=== PATIENT | male | born 1990 | race Caucasian/White ===

== ENCOUNTER 2023-09-16 10:17 | Emergency (ER) | payer BC, SELFPAY ==
[2023-09-16] VITALS (12 sets, daily range): BP systolic 119–132; BP diastolic 62–91; PULSE 53–79; RESP 13–16; TEMP 36.7–37; O2SAT 96–99; BMI 25.8
--- NOTE | 2023-09-16 10:30 | HMH.EDGENADL ---
Discharge Plan Disposition Patient Disposition: Xfer Psychiatric Hosp Condition: Fair Referrals Follow up/Referrals: Provider,Referral, [Primary Care Provider] - See instructions Clinical Impressions Clinical Impression: Depression, Suicidal ideations Discharge ED Provider: Miguel Angel Cheatham General Adult HPI General Chief complaint: Psychiatric Symptoms Stated complaint: SI Time Seen by Provider: 09/16/23 10:23 History of Present Illness HPI narrative: Patient is a 33-year-old male present to the emergency department today stating that if he did not come here that he might do something stupid. States that he has been having some chronic relationship issues with his a year ago she mentioned to him that she may want a divorce but things have been going well in his mind. However he states that recently she told him that she wanted a divorce and this is brought up suicidal thoughts. He states he does have a plan and that plan was to drive to [place] and to drown himself in the ocean. He also states that he had attempted suicide in the past had a standoff with police with a gun and ultimately was tackled before he was able to shoot himself he states. Also has a history of bipolar disorder has been off meds for at least 7 years. States that his medications always had worse side effects than any benefit that he had from them. No manic episodes lately that he is aware of. Denies any drug use alcohol etc. Related Data Allergies Allergy/AdvReac Type Severity Reaction Status Date / Time No Known Allergies Allergy Verified 09/16/23 11:38 [facility] Disclaimer: The information contained in this section may have been updated after the patient was seen, as this information can be updated by other users. Social History Smoking Status: Current every day smoker alcohol intake: never current occupational status: other Travel in the last 8 weeks: None ROS Obtained: Yes All systems reviewed & no additional complaints except as documented Physical Exam General General appearance: alert and in no apparent distress Respiratory Respiratory exam: Present normal lung sounds bilaterally; Absent respiratory distress Cardiovascular Cardiovascular exam: Present regular rate and normal rhythm Neurological Exam Neurological exam: Present alert, oriented X3 and CN II-XII intact; Absent motor sensory deficit Psychiatric Psychiatric exam: Present depressed Medical Decision Making Dougie Inquiry Pt receiving controlled substance: No Vital Signs: 09/16/23 10:18 09/16/23 10:58 09/16/23 11:00 Temperature 98.6 F Temperature Source Oral Pulse Rate 79 54 L Pulse Rate [Left Radial] 66 Respiratory Rate 13 Blood Pressure 132/79 125/82 Blood Pressure [Right Arm] 124/91 H Blood Pressure Mean 92 Blood Pressure Mean [Right Arm] 102 02 Sat by Pulse Oximetry 99 97 96 Oxygen Delivery Method Room Air Room Air 09/16/23 11:30 09/16/23 11:32 09/16/23 12:00 Temperature Temperature Source Pulse Rate 54 L 58 L 65 Pulse Rate [Left Radial] Respiratory Rate 16 16 Blood Pressure 125/67 125/67 122/75 Blood Pressure [Right Arm] Blood Pressure Mean 87 Blood Pressure Mean [Right Arm] 02 Sat by Pulse Oximetry 96 98 97 Oxygen Delivery Method Room Air Room Air 09/16/23 12:01 09/16/23 12:30 09/16/23 12:30 Temperature Temperature Source Pulse Rate 60 54 L 53 L Pulse Rate [Left Radial] Respiratory Rate 14 Blood Pressure 122/75 129/62 129/62 Blood Pressure [Right Arm] Blood Pressure Mean Blood Pressure Mean [Right Arm] 02 Sat by Pulse Oximetry 98 99 97 Oxygen Delivery Method Room Air Room Air Room Air 09/16/23 13:00 09/16/23 13:00 09/16/23 13:30 Temperature Temperature Source Pulse Rate 53 L 55 L 68 Pulse Rate [Left Radial] Respiratory Rate 16 14 Blood Pressure 128/78 128/78 124/89 Blood Pressure [Right Arm] Blood Pressure Mean Blood Pressure Mean [Right Arm] 02 Sat by Pulse Oximetry 98 98 99 Oxygen Delivery Method Room Air Room Air Room Air 09/16/23 13:30 09/16/23 14:00 09/16/23 14:18 Temperature 98.0 F Temperature Source Pulse Rate 72 58 L 58 L Pulse Rate [Left Radial] Respiratory Rate 16 15 Blood Pressure 124/89 119/64 119/64 Blood Pressure [Right Arm] Blood Pressure Mean Blood Pressure Mean [Right Arm] 02 Sat by Pulse Oximetry 97 99 Oxygen Delivery Method Room Air Room Air Lab Data Lab results reviewed: Yes I reviewed the patient's lab results. Lab Results 09/16/23 10:45: WBC 4.9, RBC 4.21 L, Hgb 13.9 L, Hct 41.0 L, MCV 97.4 H, MCH 33.0 H, MCHC 33.9, RDW 13.4, Plt Count 288, MPV 7.3 L, Neut % (Auto) 71.1, Lymph % (Auto) 21.8, [place] % (Auto) 5.5, Eos % (Auto) 1.1, Baso % (Auto) 0.5, Neut # (Auto) 3.5, Lymph # (Auto) 1.1, [place] # (Auto) 0.3, Eos # (Auto) 0.1, Baso # (Auto) 0.0, Sodium 140, Potassium 4.0, Chloride 106, Carbon Dioxide 26, Anion Gap 12.0, BUN 13, Creatinine 1.00, Estimated Creat Clear 113, Estimated GFR 87, Est GFR ( Amer) 105, Glucose 116 H, Calcium 10.1, Total Bilirubin 1.4 H, AST 56, ALT 102 H, Alkaline Phosphatase 43, Total Protein 7.9, Albumin 4.9, Globulin 3.0, Albumin/Globulin Ratio 1.6, Salicylates < 1.0 L, Acetaminophen < 10 L 09/16/23 11:38: Urine Color Yellow, Urine Appearance Clear, Urine pH 6.0, Ur Specific [place] 1.010, Urine Protein Negative, Urine Glucose (UA) Negative, Urine Ketones Negative, Urine Blood Negative, Urine Nitrate Negative, Urine Bilirubin Negative, Urine Urobilinogen 0.2, Ur Leukocyte Esterase Negative, Urine RBC None, Urine WBC None, Ur Squamous Epith Cells Occasional, Urine Bacteria None 09/16/23 12:05: Urine Opiates Screen Negative, Urine Methadone Screen Negative, Ur Barbituates Screen Negative, Ur Phencyclidine Scrn Negative, Ur Amphetamines Screen Negative, U Benzodiazepines Scrn Negative, Urine Cocaine Screen Negative, U Marijuana (THC) Screen Positive H 09/16/23 10:45 09/16/23 10:45 Orders (Tests/Meds): ORDERS Category Date Time Status Acetaminophen Stat Lab 09/16/23 10:45 Completed Complete Blood Count Auto Diff Stat Lab 09/16/23 10:45 Completed Comprehensive Metabolic Panel Stat Lab 09/16/23 10:45 Completed Drug Screen,Urine Stat Lab 09/16/23 12:05 Completed Salicylate Stat Lab 09/16/23 10:45 Completed Urinalysis and Microscopic Stat Lab 09/16/23 11:38 Completed Medical Decision Narrative: Well-appearing 33-year-old male who is depressed having suicidal ideations presents today after recent news that his wants to have a divorce worsening his suicidal thoughts that he has been having. States he does have a plan as stated in HPI. He is awake alert oriented not intoxicated has no toxidromes. No indication for any emergent testing unless required from a psych facility. He will be placed on 72-hour hold and will be with a sitter while we work on psychiatric placement. Reassessment 2:30 PM patient has remained stable in the emergency department was voluntarily sent to [place] and was escorted by police to that location. Critical Care Critical Care Time Critical Care Time: No
[2023-09-16 11:45] LABS: Basophils % 0.5 % (0.1-2.0); Eosinophils # 0.1 K/mm3 (0.0-0.4); Eosinophils % 1.1 % (0.1-12.0); Hemoglobin 13.9 g/dL (14.1-18.0); Lymphocytes # 1.1 K/mm3 (0.7-4.5); Lymphocytes % 21.8 % (10-50); Mean Corpuscular HGB Conc 33.9 g/dL (31.8-35.4); Mean Corpuscular Volume 97.4 fl (80-94); Mean Platelet Volume 7.3 fl (7.4-10.4); Monocytes # 0.3 K/mm3 (0.1-1.0); Monocytes % 5.5 % (1.7-9.3); Neutrophils # 3.5 K/mm3 (1.8-7.8); Neutrophils % 71.1 % (37.0-80.0); Platelet Count 288 K/mm3 (142-424); Red Blood Count 4.21 M/mm3 (4.60-6.20); Red Cell Distribution Width 13.4 % (11.5-17.5); White Blood Count 4.9 K/mm3 (4.8-10.8)
--- NOTE | 2023-09-16 11:49 | ECG_ITS ---
APPROVED REPORT Exam: Resting ECG HR:54 bpm ECG Measurements Heart Rate 54 AXES VA 160 P 28 QRSd 90 QRS 49 QT 400 T 55 QTc 387 Conclusion SINUS BRADYCARDIA WITH SINUS ARRHYTHMIA BORDERLINE ECG Electronically signed by : NIKUNJ PLUMMER, 09/17/2023 03:47:38
[2023-09-16 11:51] LABS: Chloride 106 mmol/L (98-107); Sodium 140 mmol/L (136-145)
[2023-09-16 11:54] LABS: Alanine Aminotransferase 102 U/L (12-78); Aspartate Amino Transferase 56 U/L (17-59); Blood Urea Nitrogen 13 mg/dl (9-20); Carbon Dioxide 26 mmol/L (22.0-30.0); Creatinine Clearance Estimated 113 mL/min (50-200); Estimated Glomerular Filt Rate 87 ml/min (>60); GFR (African American) 105 ML/MIN (>60)
[2023-09-16 11:55] LABS: Acetaminophen < 10 ug/ml (10-30); Albumin Level 4.9 g/dl (3.5-5.0); Albumin/Globulin Ratio 1.6 (1.1-1.8); Alkaline Phosphatase 43 U/L (38-126); Bilirubin,Total 1.4 mg/dl (0.2-1.3); Calcium 10.1 mg/dl (8.4-10.2); Glucose 116 mg/dl (74-100); Salicylate < 1.0 mg/dL (2.0-20.0); Total Protein,Serum 7.9 g/dl (6.3-8.2)
[2023-09-16 12:14] LABS: Microscopic, Urine URINE MICROSCOPIC (MICROSCOPIC)
[2023-09-16 12:25] LABS: Appearance,Urine CLEAR (Clear); Bilirubin,Urine Negative (Negative); Blood, Urine Negative (Negative); Color,Urine YELLOW (Yellow); Glucose,Urine (UA) Negative (Negative); Ketones,Urine Negative (Negative); Leukocyte Esterase,Urine Negative (Negative); Nitrate,Urine Negative (Negative); Protein,Urine Negative (Negative); Urobilinogen,Urine 0.2 EU/dl (0.2)
[2023-09-16 12:39] LABS: Benzodiazepines Screen,Urine Negative ng/ml (<200)
[2023-09-16 12:40] LABS: Amphetamine/Metha Screen,Urine Negative ng/ml (<1000)
[2023-09-16 12:41] LABS: Barbiturates Screen,Urine Negative ng/ml (<200); Methadone Screen,Urine Negative ng/ml (<300)
[2023-09-16 12:42] LABS: Cannabinoid Screen,Urine Positive ng/ml (<50)
[2023-09-16 12:43] LABS: Cocaine Screen,Urine Negative ng/ml (<300); Phencyclidine Screen,Urine Negative ng/ml (<25)
[2023-09-16 12:44] LABS: Opiate Screen,Urine Negative ng/ml (<300)
[2023-09-16 12:47] LABS: Squamous Epithelial Cell,Urine Occasional #/hpf (0-5)
--- NOTE | 2023-09-16 13:01 | PC.NURSE ---
records faxed to [facility] intake unit
== END 2023-09-16 14:20 ==
PROVIDERS: Emergency Provider Student in an Organized Health Care Education/Training Program
DX: R45.851 Suicidal ideations (principal); F31.9 Bipolar disorder, unspecified; R00.1 Bradycardia, unspecified; I49.9 Cardiac arrhythmia, unspecified
CPT/HCPCS: 80053; 80307; 80329; 81001; 85025; 93005; 99285; G0480